=== PATIENT | male | born 1980 | race Caucasian/White ===

== ENCOUNTER 2017-02-26 08:38 | Emergency (ER) | payer SELFPAY ==
[2017-02-26 08:46] VITALS: BP 141/72
--- NOTE | 2017-02-26 08:47 | UC ---
Lower Extremity/Ankle HPI - HPI Summary HPI Summary: 36 yo male injured right ankle last PM when he stepped in a hole unable to bear wt hurts move medially - History of Current Complaint Chief Complaint: UCLowerExtremity Stated Complaint: RIGHT ANKLE INJURY Time Seen by Provider: 02/26/17 08:42 Hx Obtained From: Patient Onset/Duration: Sudden Onset, Lasting Hours Severity Initially: Severe Severity Currently: Mild Pain Intensity: 3 - worse with movement or attempts at wt bearing Pain Scale Used: 0-10 Numeric Aggravating Factor(s): Standing, Ambulation Alleviating Factor(s): Rest Able to Bear Weight: No - Allergies/Home Medications Allergies/Adverse Reactions: Allergies Allergy/AdvReac Type Severity Reaction Status Date / Time No Known Allergies Allergy Verified 02/26/17 08:42 PMH/Surg Hx/FS Hx/Imm Hx Previously Healthy: Yes - Surgical History Surgical History: Yes Surgery Procedure, Year, and Place: RIGHT WRIST PLATES AND SCREWS- 2001 - Family History Known Family History: Positive: Hypertension - Social History Alcohol Use: Occasionally Alcohol Amount: 6-PACK WEEKLY Substance Use Type: None Smoking Status (MU): Former Smoker Type: Cigarettes Amount Used/How Often: 1/2 PACK PER WEEK Have You Smoked in the Last Year: Yes When Did the Patient Quit Smoking/Using Tobacco: 2-3 years ago Household Exposure Type: Cigarettes Review of Systems Constitutional: Negative Skin: Negative Eyes: Negative ENT: Negative Respiratory: Negative Cardiovascular: Negative Gastrointestinal: Negative Genitourinary: Negative Motor: Negative Neurovascular: Negative Musculoskeletal: Arthralgia Neurological: Negative Psychological: Negative All Other Systems Reviewed And Are Negative: Yes Physical Exam Triage Information Reviewed: Yes Appearance: Well-Appearing, No Pain Distress, Well-Nourished Vital Signs: Initial Vital Signs Temp 99.4 F 02/26/17 08:42 Pulse 95 02/26/17 08:42 Resp 14 02/26/17 08:42 BP 141/72 02/26/17 08:42 Pulse Ox 97 02/26/17 08:42 Vital Signs Reviewed: Yes Eyes: Positive: Conjunctiva Clear ENT: Positive: Hearing grossly normal. Negative: Nasal congestion, Nasal drainage, Trismus, Muffled/hoarse voice Neck: Positive: Supple, Nontender, No Lymphadenopathy Respiratory: Positive: Lungs clear, Normal breath sounds, No respiratory distress Cardiovascular: Positive: RRR, No Murmur Musculoskeletal: Positive: ROM Limited @ - right ankle, Edema @ - MM right Psychological Exam: Normal Skin Exam: Normal Diagnostics - Radiology No standard instances Xray Interpretation: Positive (See Comments) - avulsion fx MM Radiology Interpretation Completed By: Radiologist Lower Extremity Course/Dx - Course Course Of Treatment: CAM boot applied by RN - Differential Dx/Diagnosis Provider Diagnoses: Medial right ankle avulsion fracture distal tibia. medial right ankle sprain Discharge - Discharge Plan Condition: Stable Disposition: HOME Prescriptions: HYDROcodone/ACETAMIN 5-325 MG* [[place] 5-325 TAB*] 1 tab PO Q4H PRN #10 tab MDD 2 PRN Reason: Pain - Severe Patient Education Materials: Ankle Sprain (ED), Avulsion Fracture (ED) Referrals: Ricardo Acosta MD [Medical Doctor] - As Soon As Possible Additional Instructions: aleve 2 twice daily with food for pain or advil 3 4x day with food for pain rest elevate ice CAM boot try to take narcotic just at night for severe pain use your crutches avulsion fracture of medial malleolus right ankle Images Feet (Multiple View): 1 - tender/swollen
--- NOTE | 2017-02-26 09:08 | RAD ---
HISTORY: Right ankle injury, medial pain COMPARISONS: None VIEWS: 3, Frontal, lateral, and oblique views of the right ankle FINDINGS: BONE DENSITY: Normal. BONES: There are tiny bone fragments along the medial malleolus. Elsewhere, there is no displaced fracture or dislocation. JOINTS: There is no arthropathy. ALIGNMENT: There is no dislocation. SOFT TISSUES: There is soft tissue swelling OTHER FINDINGS: None. IMPRESSION: TINY BONE FRAGMENTS OFF THE MEDIAL MALLEOLUS SUGGESTIVE OF AVULSION INJURY.
== END 2017-02-26 09:29 | disposition home or self-care (01) ==
LOC: UCCORT 08:38
DX: S93.401A Sprain of unspecified ligament of right ankle, initial encounter (principal); S82.51XA Displaced fracture of medial malleolus of right tibia, initial encounter for closed fracture; X58.XXXA Exposure to other specified factors, initial encounter; Y93.9 Activity, unspecified; Y92.9 Unspecified place or not applicable; Z87.891 Personal history of nicotine dependence
CPT/HCPCS: 99203; G0463